=== PATIENT | male | born 1975 | race Caucasian/White ===

== ENCOUNTER 2018-09-23 12:53 | Emergency (ER) | payer OTHER ==
[~2018-09-23] VITALS: Ht 172.7 cm; Wt 91.2 kg
[~2018-09-23 12:53] MED LIST: HYDR-3498 PO; SULF1TAB7 PO
[2018-09-23 13:02] VITALS: BP 122/67; PULSE 72; RESP 18; Ht 172.7 cm; Wt 91.2 kg
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
[2018-09-23] MEDS ORDERED: IBUPROFEN 600 MG TAB PO ONE (14:30)
[2018-09-23] MEDS ORDERED: ACETAMINOPHEN 325 MG TAB PO ONE (14:30)
[2018-09-23] MEDS ORDERED: BACL10TA PO (15:25)
[2018-09-23] MEDS ORDERED: IBUP-1561 PO (15:25)
[2018-09-23] MEDS ORDERED: ACET325T33 PO (15:25)
== END 2018-09-23 15:38 | disposition home or self-care (01) ==
LOC: FTE 12:53
DX: M54.2 Cervicalgia (principal); R07.89 Other chest pain
CPT/HCPCS: 71250; 72125